=== PATIENT | female | born 1940 | race Caucasian/White ===

== ENCOUNTER 2017-03-14 04:43 | Inpatient (IN) | payer MEDICAID, OTHER ==
[~2017-03-14] VITALS: Ht 160 cm; Wt 52.5 kg
[~2017-03-14 04:43] MED LIST: CIPR500T4 PO; CLOT30CR24 TOP; IBUP400T22 PO; NITR-58 PO; OMEP20CA16 PO; PHEN-537 PO; SYN1 PO
[2017-03-14 04:47] VITALS: Ht 160 cm; Wt 52.5 kg
[2017-03-14 05:24] LABS: BASOPHIL # 0.1 10^3/ul (0.0-0.1); BASOPHILS % 0.5 % (0.0-2.0); EOSINOPHILS # 0.1 10^3/ul (0.0-0.5); EOSINOPHILS % 0.9 % (0.0-7.0); HEMATOCRIT 37.2 % (37.0-47.0); HEMOGLOBIN 12.3 g/dl (12.0-16.0); LYMPHOCYTES # 2.1 10^3/ul (0.8-2.9); MEAN CORPUSCULAR HEMOGLOBIN 33.5 pg (29.0-33.0); MEAN CORPUSCULAR HGB CONC 33.1 g/dl (32.0-37.0); MEAN CORPUSCULAR VOLUME 101.4 fl (82.0-101.0); MEAN PLATELET VOLUME 10.7 fl (7.4-10.4); MONOCYTE # 0.7 10^3/ul (0.3-0.9); MONOCYTES % 6.1 % (0.0-11.0); NEUTROPHIL # 8.6 10^3/ul (1.6-7.5); NEUTROPHILS % 74.2 % (39.0-77.0); PLATELET COUNT 190 10^3/UL (140-415); RED BLOOD COUNT 3.67 10^6/ul (4.20-5.40); RED CELL DISTRIBUTION WIDTH 14.8 % (11.5-14.5); WHITE BLOOD COUNT 11.6 10^3/ul (4.8-10.8)
[2017-03-14 05:47] LABS: ALBUMIN 3.8 g/dl (3.3-4.9); BILIRUBIN,INDIRECT 0.5 mg/dl (0-1.1); BILIRUBIN,TOTAL 0.5 mg/dl (0.2-1.3); CALCIUM 9.9 mg/dl (8.4-10.2); CREATININE 0.51 mg/dl (0.44-1.00); POTASSIUM 3.4 mmol/L (3.5-5.1); TOTAL PROTEIN 7.6 g/dl (6.1-8.1)
[2017-03-14] MEDS ORDERED: ACYC400T2 PO (05:58)
[2017-03-14] MEDS ORDERED: ACET500C3 PO (05:58)
[2017-03-14] MEDS ORDERED: DOCU100C26 PO (05:58)
--- NOTE | 2017-03-14 06:21 | RADRPT ---
PROCEDURE: Chest. CLINICAL INDICATION: Chest pain. TECHNIQUE: Single frontal view of the chest was obtained. COMPARISON: 05/08/2015. FINDINGS: The cardiac silhouette is magnified. The aortic arch is calcified. There is mild left basilar atel ectasis. There is no focal consolidation, vascular congestion or pleural effusion. There is no pneu mothorax. IMPRESSION: Mild left basilar atelectasis. Aortic atherosclerosis. .Gianni Perla MD, MD Date Time Electronically viewed and signed by .Gianni Perla MD, on 03/14/2017 06:20 .T/
--- NOTE | 2017-03-14 06:36 | RADRPT ---
PROCEDURE: CT Abdomen and pelvis without contrast. CLINICAL INDICATION: Abdominal pain TECHNIQUE: CT scan of the abdomen and pelvis without contrast was performed on a multidetector hig h-resolution CT scan. . Coronal and sagittal reformatted images were obtained from the axial [facility] e images. Standard CT scan of the abdomen pelvis without contrast protocols were performed. The total exam CTDI equals 13.26 mGy and the total exam DLP equals 705.42 mGy-cm. One or more of the following dose reduction techniques were used: - Automated exposure control. - Adjustment of the mA and/or kV according to patient size. Use of iterative reconstruction technique. COMPARISON: CT abdomen pelvis 10/29/2012 FINDINGS: There is retained feces throughout the colon consistent with constipation. There are diverticular ch anges of the sigmoid and distal descending colon but no definite CT evidence of diverticulitis. Ther e is mild wall thickening of the colon without pericolonic stranding and mild colitis should be cons idered. The appendix is unremarkable. The stomach and small bowel are unremarkable. Negative for intra-abdominal free air, free fluid, abscesses or lymphadenopathy. The kidneys are normal in size without calcified renal calculi hydronephrosis or intra renal masses bilaterally. The urinary bladder is unremarkable. Status post hysterectomy. No adnexal masses. The liver spleen pancreas adrenal glands and gallbladder are unremarkable. No evidence of biliary du ctal dilation. There is atherosclerosis of the aorta but no aneurysm. There is bilateral fat containing inguinal he rnias but no herniated bowel or strangulation. The lung bases are unremarkable. The osseous structures are unremarkable without acute osseous findings or osteoblastic/osteolytic le sions. There is dystrophic calcification involving both gluteal regions consistent with an injection granuloma. IMPRESSION: 1. Mild diffuse colonic wall thickening without pericolonic stranding and mild colitis should be co nsidered. Diverticulosis of the sigmoid and distal descending colon but no definite CT evidence of d iverticulitis. Negative for intra-abdominal free air fluid or abscesses. 2. No evidence of calcified urinary calculi or obstructive uropathy. 3. Bilateral fat containing inguinal hernias but no herniated hour strangulation. RPTAT:AAJJ B Jose Luis Physician Date Time Electronically viewed and signed by Marlee Amaya Physician on 03/14/2017 06:36 YANCI/
[2017-03-14] MEDS ORDERED: LEVOFLOXACIN 750MG/D5W (PMX) 150 ML IVPB ONE (07:00)
[2017-03-14] MEDS ORDERED: SOD CHLORIDE 0.9% IV ONE (07:00)
[2017-03-14] MEDS ORDERED: metroNIDAZOLE 500 MG/NS (PMX) 100 ML IVPB ONE (07:00)
[2017-03-14] MEDS ORDERED: ONDANSETRON 4 MG INJ ONE (07:04)
[2017-03-14] MEDS ORDERED: morphine 2 MG INJ ONE (07:05)
[2017-03-14 07:37] VITALS: TEMP 99
--- NOTE | 2017-03-14 07:57 | ERA ---
ER Documentation Chief Complaint Date/Time DATE: 03/14/17 TIME: 07:53 Chief Complaint diffuse abd pain w/ N/V x 1 day HPI 76-year-old female brought to the emergency department complaining of abdominal pain. Patient states for the last 1-2 days, she has been having increased diffuse, nonspecific, visceral, poorly localized abdominal pain. This is associated with nausea and nonbilious nonbloody emesis. She feels constipated but has had no blood in her stool. She states that the pain became more severe and she came to the emergency department for evaluation. She states she has never had this type of pain before. ROS All systems reviewed and are negative except as per history of present illness. Medications Home Meds Reported Medications Acyclovir* (Acyclovir*) 400 Mg Tablet, 400 MG PO BID, TAB 03/14/17 Acetaminophen (Mapap) 500 Mg Capsule, 500 MG PO Q4H Y for PAIN, CAP 03/14/17 Docusate Sodium* (Doc-Q-Lace*) 100 Mg Capsule, 100 MG PO BID Y for CONSTIPATION , CAP 03/14/17 Levothyroxine Sodium* (Synthroid*) 100 Mcg Tablet, 100 MCG PO AC BREAKFAST, TAB 05/08/15 Omeprazole* (Omeprazole*) 20 Mg Capsule.dr, 20 MG PO DAILY, CAP 02/16/14 Discontinued Scripts Ibuprofen* (Motrin*) 400 Mg Tab, 400 MG PO Q6, #30 TAB Prov:ADRIANA MILLER 11/04/15 Clotrimazole* (Clotrimazole* AF) 1% - 30 Gm Cream.gm., 1 APPLIC TOP BID for 7 Days, TUB Prov:ADRIANA MILLER 11/04/15 Phenazopyridine Hcl* (Pyridium*) 100 Mg Tab, 100 MG PO TID Y for URINARY PAIN, # 8 TAB Prov:ADRIANA MILLER 11/04/15 Nitrofurantoin Monohyd Macrocr* (Macrobid*) 100 Mg Capsr, 100 MG PO BID for 7 Days, CAP Prov:PAULADRIANA SIMEON C 11/04/15 Ciprofloxacin Hcl* (Ciprofloxacin Hcl*) 500 Mg Tablet, 500 MG PO BID for 5 Days , TAB Prov:CAMRYN POWER DO 05/09/15 Allergies Allergies: Coded Allergies: No Known Allergy (Unverified , 03/14/17) PMhx/Soc History of Surgery: Yes (hysterectomy) Anesthesia Reaction: No Hx Neurological Disorder: No Hx Respiratory Disorders: No Hx Cardiac Disorders: No Hx Psychiatric Problems: No Hx Miscellaneous Medical Probl: Yes (thyroid and gastritis) Hx Alcohol Use: No Hx Substance Use: No Hx Tobacco Use: No Smoking Status: Never smoker FmHx Noncontributory for chief complaint with supportive son at the bedside Physical Exam Vitals Vital Signs Date Time Temp Pulse Resp B/P Pulse Ox O2 Delivery O2 Flow Rate FiO2 03/14/17 07:37 99.0 133 30 138/48 97 Room Air 03/14/17 06:15 97.8 117 18 134/76 97 Room Air 03/14/17 05:07 97.6 122 20 134/96 97 Room Air 03/14/17 04:47 97.6 136 20 184/106 98 Physical Exam GENERAL: Patient is an elderly female who appears to be uncomfortable HEENT: Pupils equal, round, and reactive to light. EOMI. There is no scleral icterus. NECK: C-spine is soft and supple, there is no meningismus. There is no cervical lymphadenopathy. LUNGS: Clear to auscultation bilaterally. There are no rales, wheezes or rhonchi. HEART: Regular rate and rhythm, no murmurs, clicks, rubs or gallops. ABDOMEN: Soft, nondistended. Hypoactive bowel sounds. Left lower quadrant tenderness without rebound or guarding EXTREMITIES: There is no peripheral cyanosis or edema. No focal swelling or erythema. NEURO: The patient moves all four extremities with 5/5 strength. Cranial nerves II - XII are intact. Normal gait. Alert and oriented SKIN: There is no apparent rash or petechiae. HEME/LYMPHATIC: There is no evidence of excessive bruising or lymphedema. PSYCHIATRIC: The patient does not appear anxious or depressed. Result Diagram: 03/14/17 0510 03/14/17 0510 Results 24 hrs Laboratory Tests Test 03/14/17 05:10 White Blood Count 11.610^3/ul Red Blood Count 3.6710^6/ul Hemoglobin 12.3g/dl Hematocrit 37.2% Mean Corpuscular Volume 101.4fl Mean Corpuscular Hemoglobin 33.5pg Mean Corpuscular Hemoglobin Concent 33.1g/dl Red Cell Distribution Width 14.8% Platelet Count 74998^3/UL Mean Platelet Volume 10.7fl Neutrophils % 74.2% Lymphocytes % 18.0% Monocytes % 6.1% Eosinophils % 0.9% Basophils % 0.5% Nucleated Red Blood Cells % 0.0/100WBC Neutrophils # 8.610^3/ul Lymphocytes # 2.110^3/ul Monocytes # 0.710^3/ul Eosinophils # 0.110^3/ul Basophils # 0.110^3/ul Nucleated Red Blood Cells # 0.010^3/ul Sodium Level 138mmol/L Potassium Level 3.4mmol/L Chloride Level 103mmol/L Carbon Dioxide Level 26mmol/L Anion Gap 12 Blood Urea Nitrogen 11mg/dl Creatinine 0.51mg/dl Glucose Level 151mg/dl Calcium Level 9.9mg/dl Total Bilirubin 0.5mg/dl Direct Bilirubin 0.00mg/dl Indirect Bilirubin 0.5mg/dl Aspartate Amino Transf (AST/SGOT) 51IU/L Alanine Aminotransferase (ALT/SGPT) 34IU/L Alkaline Phosphatase 204IU/L Total Protein 7.6g/dl Albumin 3.8g/dl Globulin 3.80g/dl Albumin/Globulin Ratio 1.00 Lipase 121U/L Current Medications Medications (Trade) Dose Ordered Sig/Jenny Route PRN Reason Start Time Stop Time Status Last Admin Dose Admin Levofloxacin/ Dextrose 150 ml @ 100 mls/hr ONCE ONCE IVPB 03/14/17 07:00 03/14/17 08:29 Metronidazole 100 ml @ 100 mls/hr ONCE ONCE IVPB 03/14/17 07:00 03/14/17 07:59 03/14/17 07:25 Sodium Chloride (NS) 1,630 ml @ 543.333 mls/hr BOLUS X1 ONCE IV 03/14/17 07:00 03/14/17 09:59 03/14/17 07:25 Ondansetron HCl (Zofran Inj) 4 mg STK-MED ONCE .ROUTE 03/14/17 07:04 03/14/17 07:05 DC Morphine Sulfate (morphine) 2 mg STK-MED ONCE .ROUTE 03/14/17 07:05 03/14/17 07:06 DC Procedures/MDM Patient was taken to a room, seen and evaluated. Comfort measures were initiated. Diagnostic tests were ordered and reviewed. 3 LEAD RHYTHM STRIP: [Normal sinus rhythm without ectopy] RADIOLOGY: [reviewed with the radiologist] CONSULTATION: [hospitalist] was notified for admission REEVALUATION: Patient continued to have abdominal discomfort and required ongoing pain medication MEDICAL DECISION MAKING: Patient presents with abdominal pain of uncertain etiology. Differential diagnosis considered includes appendicitis, diverticulitis, cholecystitis and other intra-abdominal medical and surgical concerns. I have reviewed the patient's lab studies and imaging as well as multiple examinations of the abdomen. At this time, patient's evaluation demonstrates evidence of colitis and I suspect diverticulitis. Given her tachycardia her ongoing discomfort and her age, she is at high risk. He does not appear to be appropriate for outpatient care and I will be admitting her for ongoing pain control, IV antibiotics, monitoring. Departure Diagnosis: Primary Impression: Diverticulitis Condition: AMBER Peace Mar 14, 2017 07:57
[2017-03-14] MEDS ORDERED: ONDANSETRON 4 MG INJ IV STA (08:01)
[2017-03-14 08:09] LABS: ADD UMIC YES; UR ASCORBIC ACID 40 mg/dL (NEGATIVE); UR BACTERIA FEW /HPF (NONE SEEN); UR BILIRUBIN (Dip) NEGATIVE (NEGATIVE); UR BLOOD (Dip) NEGATIVE (NEGATIVE); UR CLARITY CLOUDY (CLEAR); UR COLOR AMBER (YELLOW); UR GLUCOSE (Dip) NEGATIVE (NEGATIVE); UR KETONES (Dip) TRACE mg/dL (NEGATIVE); UR LEUKOCYTE ESTERASE (Dip) 3+ Leu/ul (NEGATIVE); UR MUCUS MANY /HPF (NONE SEEN); UR NITRITE (Dip) POSITIVE (NEGATIVE); UR NONSQUAMOUS EPITHELIAL CELL 2 /HPF (NONE SEEN); UR RBC 15 /HPF (0-5); UR SPECIFIC GRAVITY (Dip) 1.014 (1.003-1.030); UR SQUAMOUS EPITHELIAL CELL FEW /HPF (FEW); UR TOTAL PROTEIN (Dip) NEGATIVE (NEGATIVE); UR UROBILINOGEN (Dip) 2+ mg/dL (NEGATIVE)
[2017-03-14] MEDS ORDERED: morphine 2 MG INJ IV ONE (08:30)
[2017-03-14] MEDS ORDERED: NA PHOSPHATE/BIPHOS 133 ML ENEMA PR ONE (08:41)
[2017-03-14] MEDS ORDERED: NACL 0.9% 3 ML SYG IV SCH (09:00)
[2017-03-14] MEDS ORDERED: POTASSIUM CHLORIDE (SR) 20 MEQ TAB PO STA (09:02)
[2017-03-14] MEDS ORDERED: CEFTRIAXONE 1 GM/50 ML (PMX) 50 ML IVPB SCH (09:30)
[2017-03-14] MEDS ORDERED: MAGNESIUM CITRATE 300 ML BTL PO ONE (09:30)
--- NOTE | 2017-03-14 10:02 | HP ---
Date/Time of Note Date/Time of Note DATE: 03/14/17 TIME: 09:58 Assessment/Plan VTE Prophylaxis VTE Prophylaxis Intervention: SCD's Assessment/Plan Chief Complaint/Hosp Course 1. Abdominal pain. CT scan of the abdomen and pelvis showing mild diffuse colonic wall thickening without pericolonic stranding. However, the CT showed retained feces throughout the colon consistent with constipation. Patient will be started on a bowel regimen. Patient will be started on prokinetics. The reason for the patient's constipation is unclear. The patient does not use any chronic opioids. The patient has no history of any diabetes. The patient has hypothyroidism. A thyroid panel will be obtained to evaluate for any significant hypothyroidism that might be causing the patient's constipation. A gastroenterology consult will be obtained to evaluate for other causes. 2. Sinus tachycardia. Etiology unclear. The patient has no evidence of any dehydration. The patient has no evidence of any underlying sepsis. The patient was noticed to have hypokalemia. This will be repleted. Patient's cardiac rhythm will be monitored closely. 3. Hypothyroidism. The patient's Synthroid will be resumed. However, a single dose of IV Synthroid will be given because the patient probably has poor absorption in the gastrointestinal tract. 4. Positive urinalysis. Possible urinary tract infection. The patient will be started on appropriate antibiotics. Urine cultures will be obtained. Plan: The patient will be admitted to inpatient setting. The patient will be started on a clear liquid diet. The patient will be started on DVT prophylaxis. The patient will remain a full code. Activities will be as tolerated. Although the patient had minimal leukocytosis, sinus tachycardia, and tachypnea , the patient does not meet the criteria for any SIRS. Therefore, the patient will not be given any fluid resuscitation for any suspected sepsis. The rest of the patient's management will be based on the clinical course, inputs from consultants, and the results of diagnostic studies. Based on the patient's clinical presentation, she most probably requires at least 2 midnights' stay for further management and evaluation of her clinical presentation. The case and management of this patient was fully discussed with Dr. Lopez. Problems: HPI/ROS Admit Date/Time Admit Date/Time Hx of Present Illness Reason for admission: Abdominal pain, constipation. Consultants 1. Tomy Bunch MD. Gastroenterology. 76-year-old female with past medical history of hypothyroidism and GERD who came to the ER with chief complaint of diffuse abdominal pain and chronic constipation that has been worse for the past 2 days. Patient verbalized that she was having abdominal pain for the past 3 years since she had her hysterectomy done. She also verbalized that she has been having constipation for the past 1 year or so. She was taking as needed Colace for her constipation. The patient verbalized that her last BM was 2 days ago. Patient denied any fevers or chills. The patient verbalized that she was having poor appetite and had abdominal discomfort with food intake. In the emergency room, the patient underwent a CT scan of the abdomen and pelvis that showed "mild diffuse colonic wall thickening without pericolonic stranding and mild colitis should be considered." The CT also revealed diverticulosis of the sigmoid and distal descending colon but no definite CT evidence of diverticulitis. There was no evidence of any calcified urinary calculi or obstructive uropathy. The patient had minimal leukocytosis. The patient was afebrile. The patient was noticed to be tachycardic. The patient was treated with IV Flagyl and IV Levaquin in the emergency room. ROS Constitutional: poor po Eyes: no complaints ENT: no complaints Respiratory: no complaints Cardiovascular: no complaints Gastrointestinal: constipation Genitourinary: no complaints Musculoskeletal: no complaints Skin: no complaints Neurologic: no complaints Endocrine: no complaints Lymphatic: no complaints Psychological: no complaints Immunologic: no complaints PMH/Family/Social Past Medical History Medical History: hypothyroid Past Surgical History Past Surgical Hx: other (Hysterectomy) Social History Alcohol Use: none Smoking Status: Never smoker Drug Use: none Exam/Review of Systems Vital Signs Vitals Vital Signs Date Time Temp Pulse Resp B/P Pulse Ox O2 Delivery O2 Flow Rate FiO2 03/14/17 07:37 99.0 133 30 138/48 97 Room Air Exam Exam General: Adequately build 76 year-old female lying in bed in no apparent distress. HEENT: Normocephalic, atraumatic. Eyes: Anicteric sclerae, conjunctivae clear. ENT: Nasal septum midline, oral mucosa moist. Neck supple, JVD noticed. Respiratory: Bilaterally diminished breath sounds. Tachypneic. No adventitious breath sounds. Cardiovascular: S1, S2 heard. No murmurs or gallops. Abdomen: Soft and nondistended. Diffuse abdominal tenderness specifically in the suprapubic area. Genitourinary: Examination revealed external and internal hemorrhoids. No solid stool in the rectal vault. Vulva has no evidence of any herpes. Extremities: No cyanosis, no clubbing, no edema. Peripheral pulses palpable. Neurologic: Cranial nerves II through XII grossly intact. The patient is awake, alert, and oriented. Skin: Normal skin turgor. No skin rashes. Labs Result Diagram: 03/14/17 0510 03/14/17 0510 Medications Medications Current Medications Acetaminophen (Tylenol Tab) 650 mg Q6H PRN PO PAIN LEVEL 1-3 OR FEVER; Start at 09:00 Polyethylene Glycol 17 gm 17 gm BID PO ; Start 03/14/17 at 09:30 Ceftriaxone Sodium (Rocephin) 50 ml @ 100 mls/hr Q24H IVPB ; Start 03/14/17 at 09:[address] scan of the Abdomen & Pelvis IMPRESSION: 1. Mild diffuse colonic wall thickening without pericolonic stranding and mild colitis should be considered. Diverticulosis of the sigmoid and distal descending colon but no definite CT evidence of diverticulitis. Negative for intra-abdominal free air fluid or abscesses. 2. No evidence of calcified urinary calculi or obstructive uropathy. 3. Bilateral fat containing inguinal hernias but no herniated hour strangulation. CXR IMPRESSION: Mild left basilar atelectasis. Aortic atherosclerosis. CARLOS MONTES NP Mar 14, 2017 10:02
[2017-03-14 10:06] LABS: THYROID STIMULATING HORMONE 6.19 MIU/L (0.465-4.680)
[2017-03-14] MEDS ORDERED: ONDANSETRON 4 MG INJ IV PRN (10:30)
[2017-03-14] MEDS: POLYETHYLENE GLYCOL 17 GM PACKET PO SCH ×2 (10:59→20:55)
[2017-03-14] MEDS ORDERED: LEVOTHYROXINE 100 MCG VIAL IV ONE (11:00)
[2017-03-14] MEDS: LEVOTHYROXINE 100 MCG TAB PO SCH (11:00)
[2017-03-14] MEDS ORDERED: IBUPROFEN 600 MG TAB ONE (11:14)
[2017-03-14] MEDS ORDERED: IBUPROFEN 600 MG TAB PO ONE (11:30)
[2017-03-14 12:57] VITALS: BP 133/51; PULSE 112; RESP 12
--- NOTE | 2017-03-14 14:39 | CONS ---
Date/Time of Note Date/Time of Note DATE: 03/14/17 TIME: 14:28 Assessment/Plan Assessment/Plan Additional Assessment/Plan Assessment * Abdominal pain/constipation T/C Diverticulitis * hypothyroidism Plan * may have clear liquids * Start with Metronidazole 500 mg Q8 * continue present management * case discussed with DR Bunch * Further orders will depend on clinical course Consultation Date/Type/Reason Admit Date/Time Reason for Consultation 76 year old female with past medical history of diverticulosis,hemorrhoids,GERD ,sigmoid polyp ,uterine prolapse wit h hysterectomy presented in the emergency room diffuse abdominal pain x 2 days with associated nausea and vomiting and constipation.Patient denies any fever ,hematochezia nor chest pain.Emergency room workup revealed leukocytosis 11.[address] scan abdomen showed . Mild diffuse colonic wall thickening without pericolonic stranding and mild colitis should be considered. Diverticulosis of the sigmoid and distal descending colon but no definite CT evidence of diverticulitis. Negative for intra-abdominal free air fluid or abscesses.. No evidence of calcified urinary calculi or obstructive uropathy. . Bilateral fat containing inguinal hernias but no herniated hour strangulation. Presently ,patient denies any nausea nor vomiting but still complaining of abdominal pain Eyes: no complaints ENT: no complaints Respiratory: no complaints Cardiovascular: no complaints Gastrointestinal: constipation Genitourinary: no complaints Musculoskeletal: no complaints Skin: no complaints Neurologic: no complaints Lymphatic: no complaints Psychological: no complaints Immunologic: no complaints Past Medical History Medical History: diverticulitis, GERD, hypothyroid Past Surgical History Past Surgical Hx: endoscopy, other (Hysterectomy) Family History Significant Family History: no pertinent family hx Social History Alcohol Use: none Smoking Status: Former smoker Drug Use: none Exam/Review of Systems Vital Signs Vitals Vital Signs Date Time Temp Pulse Resp B/P Pulse Ox O2 Delivery O2 Flow Rate FiO2 03/14/17 12:57 98.2 112 12 133/51 100 Room Air Exam Constitutional: alert, oriented, well developed Psych: nl mood/affect, no complaints Head: atraumatic, normocephalic Eyes: EOMI, PERRL, nl conjunctiva, nl lids, nl sclera ENMT: nl external ears & nose, nl lips & teeth, nl nasal mucosa & septum Neck: non-tender, supple Respiratory: clear to auscultation, normal air movement Cardiovascular: nl pulses, regular rate and rhythm Gastrointestinal: nl liver, spleen, non-tender, soft Musculoskeletal: nl extremities to inspection, nl gait and stance Extremities: normal pulses Neurological: nl speech, nl strength Skin: nl turgor, No rash or lesions Lymph: nl lymph nodes Results Result Diagram: 03/14/17 0510 03/14/17 0510 Results 24 hrs Laboratory Tests Test 03/14/17 05:10 03/14/17 07:50 White Blood Count 11.6 #H Red Blood Count 3.67 L Hemoglobin 12.3 Hematocrit 37.2 Mean Corpuscular Volume 101.4 H Mean Corpuscular Hemoglobin 33.5 H Mean Corpuscular Hemoglobin Concent 33.1 Red Cell Distribution Width 14.8 H Platelet Count 190 Mean Platelet Volume 10.7 #H Neutrophils % 74.2 Lymphocytes % 18.0 Monocytes % 6.1 Eosinophils % 0.9 Basophils % 0.5 Nucleated Red Blood Cells % 0.0 Neutrophils # 8.6 H Lymphocytes # 2.1 Monocytes # 0.7 Eosinophils # 0.1 Basophils # 0.1 Nucleated Red Blood Cells # 0.0 Sodium Level 138 Potassium Level 3.4 L Chloride Level 103 Carbon Dioxide Level 26 Anion Gap 12 Blood Urea Nitrogen 11 Creatinine 0.51 Glucose Level 151 Hemoglobin A1c 5.5 Calcium Level 9.9 Total Bilirubin 0.5 Direct Bilirubin 0.00 Indirect Bilirubin 0.5 Aspartate Amino Transf (AST/SGOT) 51 H Alanine Aminotransferase (ALT/SGPT) 34 Alkaline Phosphatase 204 H B-Type Natriuretic Peptide 68 Total Protein 7.6 Albumin 3.8 Globulin 3.80 H Albumin/Globulin Ratio 1.00 Lipase 121 Thyroid Stimulating Hormone (TSH) 6.190 H Free Thyroxine 1.37 Urine Color MELE Urine Clarity CLOUDY A Urine pH 6.0 Urine Specific [place] 1.014 Urine Ketones TRACE A Urine Nitrite POSITIVE A Urine Bilirubin NEGATIVE Urine Urobilinogen 2+ H Urine Leukocyte Esterase 3+ H Urine Microscopic RBC 15 H Urine Microscopic WBC 57 H Urine Squamous Epithelial Cells FEW Urine Bacteria FEW A Urine Mucus MANY A Urine Hemoglobin NEGATIVE Urine Glucose NEGATIVE Urine Total Protein NEGATIVE Medications Medications Current Medications Acetaminophen (Tylenol Tab) 650 mg Q6H PRN PO PAIN LEVEL 1-3 OR FEVER; Start at 09:00 Polyethylene Glycol 17 gm 17 gm BID PO Last administered on 03/14/17t 10:59; Admin Dose 17 GM; Start 03/14/17 at 09:30 Ceftriaxone Sodium (Rocephin) 50 ml @ 100 mls/hr Q24H IVPB Last administered on 03/14/17t 10:50; Admin Dose 100 MLS/HR; Start 03/14/17 at 09:30 Ondansetron HCl (Zofran Inj) 4 mg Q6H PRN IV NAUSEA AND/OR VOMITING; Start at 10:30 Metoclopramide HCl (Reglan) 5 mg Q6 IV ; Start 03/14/17 at 14:00 BUTCH FREY NP Mar 14, 2017 14:39
[2017-03-14] MEDS: METOCLOPRAMIDE 10 MG INJ IV SCH ×2 (15:57→17:46)
[2017-03-14 18:24] VITALS: BP 116/55; PULSE 134; RESP 16
[2017-03-14 18:48] VITALS: PULSE 120
[2017-03-14 20:13] VITALS: BP 90/48; RESP 18
[2017-03-14] MEDS ORDERED: KETOROLAC 30 MG INJ IV STA (20:18)
[2017-03-14] MEDS: SOD CHLORIDE 0.9% 1,000 ML IV SCH (20:53)
[2017-03-14 23:30] VITALS: BP 88/47; RESP 18
[2017-03-15] VITALS (23 sets, daily range): BP systolic 67–115; BP diastolic 43–76; PULSE 83–107; RESP 16–29
[2017-03-15] MEDS: SOD CHLORIDE 0.9% 1,000 ML IV SCH (00:19)
[2017-03-15] MEDS: METOCLOPRAMIDE 10 MG INJ IV SCH ×2 (00:58→05:23)
[2017-03-15] MEDS ORDERED: SOD CHLORIDE 0.9% 1,000 ML IV SCH (05:30)
[2017-03-15 06:01] LABS: ABNORMAL IP MESSAGE 1; BASOPHIL # 0.1 10^3/ul (0.0-0.1); BASOPHILS % 0.3 % (0.0-2.0); EOSINOPHILS # 0.1 10^3/ul (0.0-0.5); EOSINOPHILS % 0.3 % (0.0-7.0); HEMATOCRIT 30.8 % (37.0-47.0); HEMOGLOBIN 10.3 g/dl (12.0-16.0); LYMPHOCYTES # 1.7 10^3/ul (0.8-2.9); LYMPHOCYTES % 9.2 % (15.0-51.0); MEAN CORPUSCULAR HEMOGLOBIN 33.1 pg (29.0-33.0); MEAN CORPUSCULAR HGB CONC 33.4 g/dl (32.0-37.0); MEAN PLATELET VOLUME 11.2 fl (7.4-10.4); MONOCYTE # 2.5 10^3/ul (0.3-0.9); MONOCYTES % 13.4 % (0.0-11.0); NEUTROPHIL # 14.1 10^3/ul (1.6-7.5); NEUTROPHILS % 75.1 % (39.0-77.0); PLATELET COUNT 162 10^3/UL (140-415); RED BLOOD COUNT 3.11 10^6/ul (4.20-5.40); RED CELL DISTRIBUTION WIDTH 15.4 % (11.5-14.5); WHITE BLOOD COUNT 18.7 10^3/ul (4.8-10.8)
[2017-03-15 06:23] LABS: POSITIVE DIFF @See below
[2017-03-15] MEDS ORDERED: SOD CHLORIDE 0.9% 1,000 ML IV ONE (06:30)
[2017-03-15 06:47] LABS: ALBUMIN 2.3 g/dl (3.3-4.9); ALBUMIN/GLOBULIN RATIO 0.82; BILIRUBIN,INDIRECT 0.5 mg/dl (0-1.1); BILIRUBIN,TOTAL 0.5 mg/dl (0.2-1.3); CALCIUM 8.3 mg/dl (8.4-10.2); CREATININE 0.73 mg/dl (0.44-1.00); POTASSIUM 4.9 mmol/L (3.5-5.1); TOTAL PROTEIN 5.1 g/dl (6.1-8.1)
[2017-03-15] MEDS ORDERED: LIDOCAINE 1% (MPF) 5 ML VIAL SC ONE (09:00)
[2017-03-15] MEDS ORDERED: NORepinephrine 8MG/250 ML (PMX 250 ML IV SCH (09:00)
[2017-03-15] MEDS: LEVOTHYROXINE 100 MCG TAB PO SCH (09:17)
--- NOTE | 2017-03-15 09:34 | PN ---
Date/Time of Note Date/Time of Note DATE: 03/15/17 TIME: 09:28 Assessment/Plan VTE Prophylaxis VTE Prophylaxis Intervention: SCD's Lines/Catheters IV [facility] (from [facility]): Saline Lock Assessment/Plan Chief Complaint/Hosp Course 1. Abdominal pain. [address] scan of the abdomen and pelvis showing mild diffuse colonic wall thickening without pericolonic stranding. However, the CT showed retained feces throughout the colon consistent with constipation. The patient' s constipation has been resolved. Status post evaluation by gastroenterology who recommended antibiotic therapy 2. Severe sepsis. Possible early shock. Elevated white count, sinus tachycardia, and SBP less than 90 with suspected urinary tract infection and/or colitis. Pancultures will be ordered. A 2D echocardiogram will be obtained. Patient will be started on pressors if the patient's blood pressure remains low. 3. Hypothyroidism. Continue Synthroid. 4. Fluids, electrolytes, and nutrition. Clear liquids. IVFs. 5. DVT prophylaxis. Bilateral sequential compression devices. 6. Plan. Continue fluid boluses. After the fluid boluses is done and if the patient remains hypotensive, may need to start the patient on pressors. Obtain pancultures. Broaden antibiotics. Obtain 2D echocardiogram. Obtain bulb inspector evaluation. Case discussed with Dr. Lopez. Problems: Subjective 24 Hr Interval Summary Free Text/Dictation The patient had multiple episodes of diarrhea last night. The patient was hypotensive. The patient received multiple boluses of IV fluid last night. The patient was moved to the intensive care unit on 03/15/2017 for possible vasopressor infusion because of persistent hypotension. Exam/Review of Systems Vital Signs Vitals Vital Signs Date Time Temp Pulse Resp B/P Pulse Ox O2 Delivery O2 Flow Rate FiO2 03/15/17 07:31 98.4 91 16 79/43 98 03/14/17 18:24 Room Air Intake and Output 03/14/17 03/14/17 03/15/17 15:00 23:00 07:00 Intake Total 200 ml 2840 ml Balance 200 ml 2840 ml Exam General: Adequately build 76 year-old female lying in bed in no apparent distress. HEENT: Normocephalic, atraumatic. Eyes: Anicteric sclerae, conjunctivae clear. ENT: Nasal septum midline, oral mucosa moist. Neck supple, JVD noticed. Respiratory: Bilaterally diminished breath sounds. No adventitious breath sounds. Cardiovascular: S1, S2 heard. No murmurs or gallops. Abdomen: Soft and nondistended. Diffuse abdominal tenderness specifically in the suprapubic area. Genitourinary: Deferred. Extremities: No cyanosis, no clubbing, no edema. Peripheral pulses palpable. Neurologic: Cranial nerves II through XII grossly intact. The patient is awake, alert, and oriented. Skin: Normal skin turgor. No skin rashes. Results Result Diagram: 03/15/17 0525 03/15/17 0525 Results 24 hrs Laboratory Tests Test 03/15/17 05:25 White Blood Count 18.7 #H Red Blood Count 3.11 L Hemoglobin 10.3 L Hematocrit 30.8 L Mean Corpuscular Volume 99.0 Mean Corpuscular Hemoglobin 33.1 H Mean Corpuscular Hemoglobin Concent 33.4 Red Cell Distribution Width 15.4 H Platelet Count 162 Mean Platelet Volume 11.2 H Neutrophils % 75.1 Lymphocytes % 9.2 L Monocytes % 13.4 H Eosinophils % 0.3 Basophils % 0.3 Nucleated Red Blood Cells % 0.0 Neutrophils # 14.1 H Lymphocytes # 1.7 Monocytes # 2.5 H Eosinophils # 0.1 Basophils # 0.1 Nucleated Red Blood Cells # 0.0 Sodium Level 136 Potassium Level 4.9 Chloride Level 112 H Carbon Dioxide Level 22 Anion Gap 7 L Blood Urea Nitrogen 20 Creatinine 0.73 Glucose Level 87 # Calcium Level 8.3 L Magnesium Level 2.6 H Total Bilirubin 0.5 Direct Bilirubin 0.00 Indirect Bilirubin 0.5 Aspartate Amino Transf (AST/SGOT) 36 Alanine Aminotransferase (ALT/SGPT) 34 Alkaline Phosphatase 97 # Total Protein 5.1 #L Albumin 2.3 #L Globulin 2.80 Albumin/Globulin Ratio 0.82 Medications Medications Current Medications Acetaminophen 650 mg 650 mg Q6H PRN PO PAIN LEVEL 1-3 OR FEVER; Start 03/14/17 at 09:00 Ceftriaxone Sodium (Rocephin) 50 ml @ 100 mls/hr Q24H IVPB Last administered on 03/14/17t 10:50; Admin Dose 100 MLS/HR; Start 03/14/17 at 09:30 Ondansetron HCl 4 mg 4 mg Q6H PRN IV NAUSEA AND/OR VOMITING; Start 03/14/17 at 10:30 Norepinephrine 250 ml @ 1.875 mls/ hr TITRATE IV ; Start 03/15/17 at 09:00 Metronidazole (Flagyl 500 Mg (Pmx)) 100 ml @ 100 mls/hr Q8 IVPB ; Start at 14:00 CARLOS MONTES NP Mar 15, 2017 09:34 17 at 14:00 CARLOS MONTES NP Mar 15, 2017 09:34
[2017-03-15 10:25] LABS: INR 1.72; PROTIME 20.3 Sec (12.2-14.2); PT RATIO 1.6
[2017-03-15 10:26] LABS: PARTIAL THROMBOPLASTIN TIME 46.7 Sec (25.0-35.0)
[2017-03-15] MEDS ORDERED: VANCOMYCIN IV PER PHARMACY XX SCH (10:30)
[2017-03-15] MEDS: PIPER-TAZO 3.375 GM IV (PMX) 100 ML IVPB SCH ×3 (11:30→20:58)
--- NOTE | 2017-03-15 13:06 | CONS ---
DATE OF ADMISSION: 03/14/2017 DATE OF CONSULTATION: 03/15/2017 REASON FOR CONSULTATION: Hypotension and sepsis. Thank you, Dr. Guthrie, for this consultation. HISTORY OF PRESENT ILLNESS: This is a 76-year-old lady who presented with abdominal pain and constipation, which had been worse for the past several days. No nausea. No vomiting. In the emergency room, CT of the abdomen showed mild colonic wall thickening and stranding consistent with mild colitis. The patient had hypotension requiring transfer to intensive care unit and initiation of vasopressor support. In addition, urinalysis shows gram-negative rods. Initial Clostridium difficile was negative. PAST MEDICAL HISTORY: 1. Hypothyroidism. 2. Chronic constipation. MEDICATION: Per chart. ALLERGIES: NONE. SOCIAL HISTORY: Nonsmoker. No alcohol. No history of drug use. FAMILY HISTORY: Noncontributory. REVIEW OF SYSTEMS: A 12-point review of systems negative other than that mentioned above. PHYSICAL EXAMINATION: GENERAL: On examination, elderly lady, appears comfortable at rest. No acute distress. VITAL SIGNS: Temperature 98, pulse is 100, blood pressure 100/55, O2 sat 96 percent on room air. NECK: Supple. No JVD. HEART: S1, S2. No added sounds or murmurs. CHEST: Diminished air entry bilaterally. No rales or wheezes. ABDOMEN: Mildly distended. No guarding or rebound. EXTREMITIES: No cyanosis, clubbing, or edema. NEUROLOGIC: Grossly intact. DIAGNOSTIC AND LABORATORY DATA: White count 18.7, hemoglobin at 10.3, platelets of 162. BUN 20, creatinine 0.73, lactic acid 2.2. INR 1.72. Chest x-ray shows no infiltrates or effusions. Mild bibasilar atelectasis. IMPRESSION AND PLAN: 1. Likely gram-negative septic shock. 2. Chronic constipation. 3. History of hypothyroidism, which may be the cause of her chronic constipation. PLAN: 1. Continue volume resuscitation. 2. Serial lactic acid. 3. Continue vancomycin, can likely be de-escalated soon. 4. DVT and GI prophylaxis. Dictated By: Mayo Hall MD /brien/marie /Document#: [id number]
[2017-03-15] MEDS ORDERED: VANCOMYCIN 1.25 GM in SOD CHLORIDE 0.9% 250 ML IVPB SCH (13:30)
[2017-03-15] MEDS ORDERED: metroNIDAZOLE 500 MG/NS (PMX) 100 ML IVPB SCH (14:00)
--- NOTE | 2017-03-15 20:43 | RADRPT ---
Echocardiogram Report Patient Name: CORINE KU Gender: Female Date: 1940 Study Date: 15-Mar-2017 Front End Developer Designer: Jacob Mccoy RDCS Location: 114 Ref. Physician: CARLOS MONTES Quality: Good Procedures: Transthoracic echocardiogram with complete 2D, M-Mode, and doppler examination. Indications: Evaluate Left Ventricular function. 2D/M Mode Doppler Measurement Value Normal Ranges Measurement Value Normal Ranges LVIDd 2D 4.1 3.5 - 5.6 cm AV Peak Clive 1.5 m/sec LVIDs 2D 2.8 2.1 - 4.1 cm AV Peak PG 8.5 mmHg LVPWd 2D 0.9 0.6 - 1.1 cm LVOT Peak Clive 1.1 m/sec IVSd 2D 0.9 0.6 - 1.1 cm LVOT Peak PG 5.2 mmHg AoR Diam 2D 2.7 2.0 - 3.7 cm MV E Peak Clive 0.9 m/sec EDV 2D 74.4 cm3 MV A Peak Clive 1.1 m/sec ESV 2D 22.0 cm3 MV E/A 0.8 LA Dimen 2D 3.5 2.3 - 4.0 cm MV Decel Time 111 msec MV Decel Pima 8 MV E/A 0.8 TR Peak Clive 2.7 m/sec TR Peak PG 30.1 mmHg RVSP 33.0 mmHg Findings Left Ventricle: Normal left ventricular systolic function. Normal left ventricular cavity size. Normal left ventricular wall thickness. Ejection fraction is visually estimated at 60 %. Tissue Doppler/Mitral Doppler indices are consistent with impaired relaxation (Stage I diastolic dysfunction). Right Ventricle: Normal right ventricular size. Normal right ventricular systolic function. Left Atrium: The left atrium is normal in size. Right Atrium: The right atrium is normal in size. Mitral Valve: Normal appearance and function of the mitral valve with trace physiologic regurgitation. Aortic Valve: Normal appearance of the aortic valve. No significant aortic stenosis or insufficiency. Tricuspid Valve: Normal appearance of the tricuspid valve. Estimated peak PA systolic pressure 33 mmHg. There is mild tricuspid regurgitation. Pulmonic Valve: Normal pulmonic valve appearance. Pericardium: Normal pericardium with no significant pericardial effusion. Aorta: Normal aortic root. IVC: Normal size and normal respiratory collapse consistent with normal right atrial pressure. Conclusions 1.Normal left ventricular systolic function. Normal left ventricular cavity size. Normal left ventricular wall thickness. Ejection fraction is visually estimated at 60 %. Tissue Doppler/Mitral Doppler indices are consistent with impaired relaxation (Stage I diastolic dysfunction). 2.Normal appearance and function of the mitral valve with trace physiologic regurgitation. 3.Normal appearance of the tricuspid valve. Estimated peak PA systolic pressure 33 mmHg. There is mild tricuspid regurgitation. Electronically Signed By: Margarito Etienne 15-Mar-2017 20:42:56 -0700 Patient Name: CORINE KU Study Date: [id number]
[2017-03-16 02:00] VITALS: BP 101/54; RESP 16
[2017-03-16] MEDS: PIPER-TAZO 3.375 GM IV (PMX) 100 ML IVPB SCH ×3 (05:30→21:23)
[2017-03-16 06:10] LABS: BASOPHIL # 0.1 10^3/ul (0.0-0.1); BASOPHILS % 0.4 % (0.0-2.0); EOSINOPHILS # 0.4 10^3/ul (0.0-0.5); EOSINOPHILS % 2.2 % (0.0-7.0); HEMATOCRIT 29.9 % (37.0-47.0); HEMOGLOBIN 10.2 g/dl (12.0-16.0); LYMPHOCYTES # 2.7 10^3/ul (0.8-2.9); LYMPHOCYTES % 16.2 % (15.0-51.0); MEAN CORPUSCULAR HEMOGLOBIN 33.8 pg (29.0-33.0); MEAN CORPUSCULAR HGB CONC 34.1 g/dl (32.0-37.0); MEAN PLATELET VOLUME 11.5 fl (7.4-10.4); MONOCYTE # 1.3 10^3/ul (0.3-0.9); MONOCYTES % 7.5 % (0.0-11.0); NEUTROPHILS % 72.5 % (39.0-77.0); PLATELET COUNT 142 10^3/UL (140-415); RED BLOOD COUNT 3.02 10^6/ul (4.20-5.40); RED CELL DISTRIBUTION WIDTH 15.9 % (11.5-14.5); WHITE BLOOD COUNT 16.6 10^3/ul (4.8-10.8)
[2017-03-16 06:26] LABS: POSITIVE DIFF @See below
[2017-03-16 07:08] LABS: ALBUMIN 2.1 g/dl (3.3-4.9); ALBUMIN/GLOBULIN RATIO 0.77; CALCIUM 7.7 mg/dl (8.4-10.2); CREATININE 0.58 mg/dl (0.44-1.00); POTASSIUM 3.8 mmol/L (3.5-5.1); TOTAL PROTEIN 4.8 g/dl (6.1-8.1)
[2017-03-16 07:46] VITALS: BP 106/53; RESP 20
[2017-03-16] MEDS: LEVOTHYROXINE 100 MCG TAB PO SCH (07:55)
[2017-03-16 08:28] LABS: BILIRUBIN,INDIRECT 0.6 mg/dl (0-1.1); BILIRUBIN,TOTAL 0.6 mg/dl (0.2-1.3)
[2017-03-16 09:47] LABS: MAGNESIUM 2.2 mg/dl (1.7-2.5); PHOSPHORUS 2.2 mg/dl (2.5-4.9)
--- NOTE | 2017-03-16 10:51 | PN ---
Date/Time of Note Date/Time of Note DATE: 03/16/17 TIME: 10:49 Assessment/Plan VTE Prophylaxis VTE Prophylaxis Intervention: SCD's Lines/Catheters IV [facility] Type (from [facility]): Saline Lock Assessment/Plan Chief Complaint/Hosp Course 1. Abdominal pain. CT scan of the abdomen and pelvis showing mild diffuse colonic wall thickening without pericolonic stranding. However, the CT showed retained feces throughout the colon consistent with constipation. The patient' s constipation has been resolved. Status post evaluation by gastroenterology who recommended antibiotic therapy 2. Severe sepsis secondary to underlying urinary tract infection. Continue antimicrobials. Will call infectious disease for antibiotic management. 3. E. coli ESBL urinary tract infection. Continue contact precautions. Antibiotic management as per infectious diseases. 4. Hypothyroidism. Continue Synthroid. 5. Fluids, electrolytes, and nutrition. Clear liquids. IVFs. 6. DVT prophylaxis. Bilateral sequential compression devices. 7. Plan. De-escalate antibiotics. Antibiotic management as per sensitivities to be decided by infectious diseases. Advance diet. Problems: Subjective 24 Hr Interval Summary Free Text/Dictation The patient has no more hypotension. Remains afebrile. Exam/Review of Systems Vital Signs Vitals Vital Signs Date Time Temp Pulse Resp B/P Pulse Ox O2 Delivery O2 Flow Rate FiO2 03/16/17 07:46 98.7 86 20 106/53 95 03/15/17 20:00 Nasal Cannula 2.0 Intake and Output 03/15/17 03/15/17 03/16/17 15:00 23:00 07:00 Intake Total 3150 ml 1050 ml 320 ml Output Total 600 ml 100 ml Balance 3150 ml 450 ml 220 ml Exam General: Adequately build 76 year-old female lying in bed in no apparent distress. HEENT: Normocephalic, atraumatic. Eyes: Anicteric sclerae, conjunctivae clear. ENT: Nasal septum midline, oral mucosa moist. Neck supple, JVD noticed. Respiratory: Bilaterally diminished breath sounds. No adventitious breath sounds. Cardiovascular: S1, S2 heard. No murmurs or gallops. Abdomen: Soft and nondistended. Diffuse abdominal tenderness specifically in the suprapubic area. Genitourinary: Deferred. Extremities: No cyanosis, no clubbing, no edema. Peripheral pulses palpable. Neurologic: Cranial nerves II through XII grossly intact. The patient is awake, alert, and oriented. Skin: Normal skin turgor. No skin rashes. Results Result Diagram: 03/16/17 0515 03/16/17 0515 Results 24 hrs Laboratory Tests Test 03/16/17 05:15 White Blood Count 16.6 H Red Blood Count 3.02 L Hemoglobin 10.2 L Hematocrit 29.9 L Mean Corpuscular Volume 99.0 Mean Corpuscular Hemoglobin 33.8 H Mean Corpuscular Hemoglobin Concent 34.1 Red Cell Distribution Width 15.9 H Platelet Count 142 Mean Platelet Volume 11.5 H Neutrophils % 72.5 Lymphocytes % 16.2 Monocytes % 7.5 Eosinophils % 2.2 Basophils % 0.4 Nucleated Red Blood Cells % 0.0 Neutrophils # 12.0 H Lymphocytes # 2.7 Monocytes # 1.3 H Eosinophils # 0.4 Basophils # 0.1 Nucleated Red Blood Cells # 0.0 Sodium Level 135 Potassium Level 3.8 Chloride Level 112 H Carbon Dioxide Level 22 Anion Gap 5 L Blood Urea Nitrogen 9 # Creatinine 0.58 Glucose Level 82 Calcium Level 7.7 L Phosphorus Level 2.2 L Magnesium Level 2.2 Total Bilirubin 0.6 Direct Bilirubin 0.00 Indirect Bilirubin 0.6 Aspartate Amino Transf (AST/SGOT) 43 Alanine Aminotransferase (ALT/SGPT) 31 Alkaline Phosphatase 82 Total Protein 4.8 L Albumin 2.1 L Globulin 2.70 Albumin/Globulin Ratio 0.77 Medications Medications Current Medications Acetaminophen (Tylenol Tab) 650 mg Q6H PRN PO PAIN LEVEL 1-3 OR FEVER; Start at 09:00 Ondansetron HCl 4 mg 4 mg Q6H PRN IV NAUSEA AND/OR VOMITING; Start 03/14/17 at 10:30 Piperacillin Sod/ Tazobactam Sod (Zosyn 3.375gm/ 100 ml (Pmx)) 100 ml @ 25 mls/ hr Q8 IVPB Last administered on 03/16/17t 05:30; Admin Dose 25 MLS/HR; Start at 11:00 CARLOS MONTES NP Mar 16, 2017 10:51
[2017-03-16] MEDS ORDERED: VANCOMYCIN 750 MG in SOD CHLORIDE 0.9% 150 ML IVPB SCH (13:00)
[2017-03-16 14:16] VITALS: BP 122/58; RESP 18
--- NOTE | 2017-03-16 15:34 | PN ---
Date/Time of Note Date/Time of Note DATE: 03/16/17 TIME: 15:30 Assessment/Plan VTE Prophylaxis VTE Prophylaxis Intervention: SCD's Lines/Catheters IV Catheter Type (from [facility]): Saline Lock Assessment/Plan Assessment/Plan Assessment * Abdominal pain/constipation T/C Diverticulitis * hypothyroidism * sepsis sec UTI Plan * continue present management * further orders will depend on clinical course * case discussed with Dr Bunch Subjective 24 Hr Interval Summary Free Text/Dictation * Case reviewed * Patient seen and examined * Patient previously transferred to ICU because of blood pressure issues * Denies abdominal pain Exam/Review of Systems Vital Signs Vitals Vital Signs Date Time Temp Pulse Resp B/P Pulse Ox O2 Delivery O2 Flow Rate FiO2 03/16/17 14:16 98.0 79 18 122/58 96 03/15/17 20:00 Nasal Cannula 2.0 Intake and Output 03/15/17 03/15/17 03/16/17 15:00 23:00 07:00 Intake Total 3150 ml 1050 ml 320 ml Output Total 600 ml 100 ml Balance 3150 ml 450 ml 220 ml Exam Constitutional: alert, frail Head: atraumatic, normocephalic Neck: non-tender, supple Respiratory: clear to auscultation, normal air movement Cardiovascular: nl pulses, regular rate and rhythm Gastrointestinal: non-tender, soft Musculoskeletal: nl extremities to inspection, nl gait and stance Extremities: normal pulses Skin: nl turgor, No rash or lesions Results Result Diagram: 03/16/17 0515 03/16/17 0515 Results 24 hrs Laboratory Tests Test 03/16/17 05:15 White Blood Count 16.6 H Red Blood Count 3.02 L Hemoglobin 10.2 L Hematocrit 29.9 L Mean Corpuscular Volume 99.0 Mean Corpuscular Hemoglobin 33.8 H Mean Corpuscular Hemoglobin Concent 34.1 Red Cell Distribution Width 15.9 H Platelet Count 142 Mean Platelet Volume 11.5 H Neutrophils % 72.5 Lymphocytes % 16.2 Monocytes % 7.5 Eosinophils % 2.2 Basophils % 0.4 Nucleated Red Blood Cells % 0.0 Neutrophils # 12.0 H Lymphocytes # 2.7 Monocytes # 1.3 H Eosinophils # 0.4 Basophils # 0.1 Nucleated Red Blood Cells # 0.0 Sodium Level 135 Potassium Level 3.8 Chloride Level 112 H Carbon Dioxide Level 22 Anion Gap 5 L Blood Urea Nitrogen 9 # Creatinine 0.58 Glucose Level 82 Calcium Level 7.7 L Phosphorus Level 2.2 L Magnesium Level 2.2 Total Bilirubin 0.6 Direct Bilirubin 0.00 Indirect Bilirubin 0.6 Aspartate Amino Transf (AST/SGOT) 43 Alanine Aminotransferase (ALT/SGPT) 31 Alkaline Phosphatase 82 Total Protein 4.8 L Albumin 2.1 L Globulin 2.70 Albumin/Globulin Ratio 0.77 Medications Medications Current Medications Acetaminophen (Tylenol Tab) 650 mg Q6H PRN PO PAIN LEVEL 1-3 OR FEVER; Start at 09:00 Ondansetron HCl 4 mg 4 mg Q6H PRN IV NAUSEA AND/OR VOMITING; Start 03/14/17 at 10:30 Piperacillin Sod/ Tazobactam Sod (Zosyn 3.375gm/ 100 ml (Pmx)) 100 ml @ 25 mls/ hr Q8 IVPB Last administered on 03/16/17t 14:12; Admin Dose 25 MLS/HR; Start at 11:00 BUTCH FREY NP Mar 16, 2017 15:34
[2017-03-16] MEDS: ACETAMINOPHEN 325 MG TAB PO PRN (16:15)
--- NOTE | 2017-03-16 16:31 | RADRPT ---
Vent Rate: 107 bpm RR Interval: 0 msec ND Interval: 144 msec QRS Duration: 80 msec QT Interval: 338 msec QTC Interval: 451 msec P-R-T [place]: 38 - 63 - 36 degrees Sinus tachycardia Otherwise normal ECG Electronically Signed By: Gordo Ramirez [id number]
[2017-03-16 20:00] VITALS: BP 126/60; RESP 18
--- NOTE | 2017-03-16 22:08 | CONS ---
DATE OF ADMISSION: 03/14/2017 DATE OF CONSULTATION: 03/16/2017 REASON FOR CONSULTATION: Antibiotic management. HISTORY OF PRESENT ILLNESS: Alexys Chau is a 76-year-old female with past medical history of hypothyroidism and GERD who came to the emergency room with chief complaint of diffuse abdominal pain, chronic constipation, worse over the last few days. He is being seen for antibiotic management. Patient has had abdominal pain for the past three years since she had a hysterectomy. She had been having constipation for the past year and takes Colace. She is having poor appetite and abdominal discomfort. In the emergency room, a CT scan of the abdomen and pelvis showed mild diffuse colonic wall thickening without pericolonic stranding and mild colitis. CT scan also showed diverticulosis of the sigmoid and descending colon but no definite CT evidence of diverticulitis. There is no evidence of any calcified urinary calculi or obstructive uropathy. Patient had minimal leukocytosis. She is afebrile and tachycardic. She was treated with IV Flagyl and Levaquin in the emergency room. In the emergency room, here white count was 11.6, H and H of 12.3 and 37.2, platelet count 190,000. BUN and creatinine 11/0.51. PAST MEDICAL HISTORY: As outlined. Additional medical history, she is hypothyroid. PAST SURGICAL HISTORY: Status post hysterectomy. SOCIAL HISTORY: She does not smoke, drink, or abuse drugs. ALLERGIES: NONE TO PENICILLIN, SULFA, OR FOODS. MEDICATION: Per chart. REVIEW OF SYSTEMS: Noncontributory. PHYSICAL EXAMINATION: GENERAL: Patient is a well-developed, well-nourished female who is alert and responsive in no acute distress. VITAL SIGNS: Stable. She is afebrile. SKIN: Without generalized rash. HEENT: Within normal limits. NECK: Supple. Lymph nodes nonpalpable. CHEST: Decreased breath sounds at the bases. ABDOMEN: Soft, nontender, nondistended. She has diffuse abdominal tenderness in the suprapubic area. EXTREMITIES: Without cyanosis, clubbing or edema. RECTAL: Deferred. GENITAL: Deferred. NEUROLOGICAL: No evidence of focal neurological abnormalities. DIAGNOSTIC AND LABORATORY DATA: Chest x-ray just showed mild left basilar atelectasis and aortic atherosclerosis. Patient was begun on ceftriaxone and then was started on vancomycin and Zosyn. She was seen by Dr. Hall. He noted that she had hypotension and sepsis requiring transfer to the intensive care unit and initiation of vasopressor support. Urinalysis showed gram-negative rods. Initial Clostridium difficile was negative. Her white count jumped up to 18.7, hemoglobin 10.3, platelet count 162,000. BUN and creatinine 20/0.73. Chest x-ray without infiltrates or effusions, mild basilar atelectasis. Dr. Hall felt that she had likely gram- negative septic shock and was therefore placed on vancomycin and Zosyn. Today, she was noted to have E. coli ESBL urinary tract infection with E. coli sensitive to Zosyn, as well as to cefepime. C. diff was negative. Blood cultures are negative. White count is 16.6 today. As noted, the urine was positive for nitrite and leukocyte esterase and had 57 white cells per high- power field. IMPRESSION: Patient came in with urinary tract infection with sepsis and hypotension, so septic shock, and currently on Zosyn. The vancomycin can be discontinued. I will dictate my findings to the hospitalists, as well as to Dr. Hall. Dictated By: Tex Shirley MD JD/brien/joy /Document#: [id number]
[2017-03-17 02:00] VITALS: BP 125/58; RESP 18
[2017-03-17] MEDS: PIPER-TAZO 3.375 GM IV (PMX) 100 ML IVPB SCH (05:05)
[2017-03-17 06:11] LABS: BASOPHIL # 0.1 10^3/ul (0.0-0.1); BASOPHILS % 0.6 % (0.0-2.0); EOSINOPHILS # 0.3 10^3/ul (0.0-0.5); EOSINOPHILS % 3.3 % (0.0-7.0); HEMATOCRIT 31.8 % (37.0-47.0); HEMOGLOBIN 10.8 g/dl (12.0-16.0); LYMPHOCYTES # 2.7 10^3/ul (0.8-2.9); LYMPHOCYTES % 28.7 % (15.0-51.0); MEAN CORPUSCULAR HEMOGLOBIN 33.3 pg (29.0-33.0); MEAN CORPUSCULAR VOLUME 98.1 fl (82.0-101.0); MEAN PLATELET VOLUME 11.4 fl (7.4-10.4); MONOCYTE # 0.7 10^3/ul (0.3-0.9); MONOCYTES % 7.7 % (0.0-11.0); NEUTROPHIL # 5.5 10^3/ul (1.6-7.5); NEUTROPHILS % 59.3 % (39.0-77.0); PLATELET COUNT 156 10^3/UL (140-415); RED BLOOD COUNT 3.24 10^6/ul (4.20-5.40); RED CELL DISTRIBUTION WIDTH 15.5 % (11.5-14.5); WHITE BLOOD COUNT 9.3 10^3/ul (4.8-10.8)
[2017-03-17 06:38] LABS: PHOSPHORUS 2.6 mg/dl (2.5-4.9)
[2017-03-17 06:41] LABS: CALCIUM 7.6 mg/dl (8.4-10.2); CREATININE 0.59 mg/dl (0.44-1.00); POTASSIUM 3.5 mmol/L (3.5-5.1)
[2017-03-17 08:26] VITALS: BP 129/63; RESP 16
--- NOTE | 2017-03-17 09:14 | PN ---
Date/Time of Note Date/Time of Note DATE: 03/17/17 TIME: 09:11 Assessment/Plan VTE Prophylaxis VTE Prophylaxis Intervention: SCD's Lines/Catheters IV [facility]from [facility] Saline Lock Assessment/Plan Chief Complaint/Hosp Course 1. Abdominal pain. CT scan of the abdomen and pelvis showing mild diffuse colonic wall thickening without pericolonic stranding. However, the CT showed retained feces throughout the colon consistent with constipation. Being followed by gastroenterology. 2. Severe sepsis secondary to underlying urinary tract infection. Continue antimicrobials. No evidence of any septic shock. 3. E. coli ESBL urinary tract infection. Continue contact precautions. Antibiotic management as per infectious diseases. 4. Hypothyroidism. Continue Synthroid. 5. Deconditioning. Status post evaluation by physical therapy. Physical therapy recommending discharge home with a front wheel walker and home health physical therapy. 6. Fluids, electrolytes, and nutrition. Soft diet. 7. DVT prophylaxis. Bilateral sequential compression devices. 8. Plan. Continue antimicrobials. Resume stool softeners. Await ID recommendations for antibiotics for discharge. Local anti-inflammatory agents to the lopez-rectal area. Obtain KUB. Problems: Subjective 24 Hr Interval Summary Free Text/Dictation Patient remains afebrile. WBC has been normalized. Complains of lopez-rectal pain and burning. Having bowel movements, but unable to empty the bowels completely. Exam/Review of Systems Vital Signs Vitals Vital Signs Date Time Temp Pulse Resp B/P Pulse Ox O2 Delivery O2 Flow Rate FiO2 03/17/17 08:26 98.8 65 16 129/63 95 03/15/17 20:00 Nasal Cannula 2.0 Intake and Output 03/16/17 03/16/17 03/17/17 15:00 23:00 07:00 Intake Total 100 ml 580 ml 150 ml Output Total 900 ml Balance 100 ml -320 ml 150 ml Exam General: Adequately build 76 year-old female lying in bed in no apparent distress. HEENT: Normocephalic, atraumatic. Eyes: Anicteric sclerae, conjunctivae clear. ENT: Nasal septum midline, oral mucosa moist. Neck supple, JVD noticed. Respiratory: Bilaterally diminished breath sounds. No adventitious breath sounds. Cardiovascular: S1, S2 heard. No murmurs or gallops. Abdomen: Soft and nondistended. Diffuse abdominal tenderness specifically in the suprapubic area. Genitourinary: Deferred. Extremities: No cyanosis, no clubbing, no edema. Peripheral pulses palpable. Neurologic: Cranial nerves II through XII grossly intact. The patient is awake, alert, and oriented. Skin: Normal skin turgor. No skin rashes. Results Result Diagram: 03/17/17 0531 03/17/17 0531 Results 24 hrs Laboratory Tests Test 03/17/17 05:31 White Blood Count 9.3 # Red Blood Count 3.24 L Hemoglobin 10.8 L Hematocrit 31.8 L Mean Corpuscular Volume 98.1 Mean Corpuscular Hemoglobin 33.3 H Mean Corpuscular Hemoglobin Concent 34.0 Red Cell Distribution Width 15.5 H Platelet Count 156 Mean Platelet Volume 11.4 H Neutrophils % 59.3 Lymphocytes % 28.7 Monocytes % 7.7 Eosinophils % 3.3 Basophils % 0.6 Nucleated Red Blood Cells % 0.0 Neutrophils # 5.5 Lymphocytes # 2.7 Monocytes # 0.7 Eosinophils # 0.3 Basophils # 0.1 Nucleated Red Blood Cells # 0.0 Sodium Level 139 Potassium Level 3.5 Chloride Level 111 H Carbon Dioxide Level 24 Anion Gap 8 Blood Urea Nitrogen 6 L Creatinine 0.59 Glucose Level 83 Calcium Level 7.6 L Phosphorus Level 2.6 Magnesium Level 2.0 Medications Medications Current Medications Acetaminophen (Tylenol Tab) 650 mg Q6H PRN PO PAIN LEVEL 1-3 OR FEVER Last administered on 03/16/17 16:15; Admin Dose 650 MG; Start 03/14/17 at 09:00 Ondansetron HCl 4 mg 4 mg Q6H PRN IV NAUSEA AND/OR VOMITING; Start 03/14/17 at 10:30 Piperacillin Sod/ Tazobactam Sod (Zosyn 3.375gm/ 100 ml (Pmx)) 100 ml @ 25 mls/ hr Q8 IVPB Last administered on 03/17/17 05:05; Admin Dose 25 MLS/HR; Start at 11:00 CARLOS MONTES NP Mar 17, 2017 09:14
[2017-03-17] MEDS: LEVOTHYROXINE 100 MCG TAB PO SCH (09:40)
[2017-03-17] MEDS ORDERED: HYDROCORTISONE 25 MG SUPP PR PRN (10:00)
[2017-03-17] MEDS: POLYETHYLENE GLYCOL 17 GM PACKET PO SCH ×2 (11:25→20:56)
--- NOTE | 2017-03-17 12:13 | PN ---
Date/Time of Note Date/Time of Note DATE: 03/17/17 TIME: 12:13 Assessment/Plan VTE Prophylaxis VTE Prophylaxis Intervention: SCD's Lines/Catheters IV Catheter Type (from Rust): Saline Lock Assessment/Plan Chief Complaint/Hosp Course [facility] HCIS Progress Note Adult Patient Name: Alexys Chau Unit Number: [id number] Date of : 1940 Patient Status: Admitted Inpatient Attending Doctor: Betty Crespo MD Date/Time of Note Date/Time of Note Date/Time of Note DATE: 03/16/17 TIME: 15:30 Assessment/Plan Assessment/Plan VTE Prophylaxis VTE Prophylaxis Intervention: SCD's Lines/Catheters IV Catheter Type (from Rust): Saline Lock Assessment/Plan Assessment/Plan Assessment * Abdominal pain/constipation T/C Diverticulitis * hypothyroidism * sepsis sec UTI Plan * continue present management Subjective Subjective 24 Hr Interval Summary Free Text/Dictation * Patient seen and examined * Denies abdominal pain * Woman hematemesis reported Exam Constitutional: alert, frail Head: atraumatic, normocephalic Neck: non-tender, supple Respiratory: clear to auscultation, normal air movement Cardiovascular: nl pulses, regular rate and rhythm Gastrointestinal: non-tender, soft Musculoskeletal: nl extremities to inspection, nl gait and stance Extremities: normal pulses Skin: nl turgor, No rash or lesions Problems: Exam/Review of Systems Vital Signs Vitals Vital Signs Date Time Temp Pulse Resp B/P Pulse Ox O2 Delivery O2 Flow Rate FiO2 03/17/17 08:26 98.8 65 16 129/63 95 03/15/17 20:00 Nasal Cannula 2.0 Intake and Output 03/16/17 03/16/17 03/17/17 15:00 23:00 07:00 Intake Total 100 ml 580 ml 150 ml Output Total 900 ml Balance 100 ml -320 ml 150 ml Results Result Diagram: 03/17/1731 03/17/17 0531 Results 24 hrs Laboratory Tests Test 03/17/17 05:31 White Blood Count 9.3 # Red Blood Count 3.24 L Hemoglobin 10.8 L Hematocrit 31.8 L Mean Corpuscular Volume 98.1 Mean Corpuscular Hemoglobin 33.3 H Mean Corpuscular Hemoglobin Concent 34.0 Red Cell Distribution Width 15.5 H Platelet Count 156 Mean Platelet Volume 11.4 H Neutrophils % 59.3 Lymphocytes % 28.7 Monocytes % 7.7 Eosinophils % 3.3 Basophils % 0.6 Nucleated Red Blood Cells % 0.0 Neutrophils # 5.5 Lymphocytes # 2.7 Monocytes # 0.7 Eosinophils # 0.3 Basophils # 0.1 Nucleated Red Blood Cells # 0.0 Sodium Level 139 Potassium Level 3.5 Chloride Level 111 H Carbon Dioxide Level 24 Anion Gap 8 Blood Urea Nitrogen 6 L Creatinine 0.59 Glucose Level 83 Calcium Level 7.6 L Phosphorus Level 2.6 Magnesium Level 2.0 Medications Medications Current Medications Acetaminophen (Tylenol Tab) 650 mg Q6H PRN PO PAIN LEVEL 1-3 OR FEVER Last administered on 03/16/17 16:15; Admin Dose 650 MG; Start 03/14/17 at 09:00 Ondansetron HCl 4 mg 4 mg Q6H PRN IV NAUSEA AND/OR VOMITING; Start 03/14/17 at 10:30 Piperacillin Sod/ Tazobactam Sod (Zosyn 3.375gm/ 100 ml (Pmx)) 100 ml @ 25 mls/ hr Q8 IVPB Last administered on 03/17/17 05:05; Admin Dose 25 MLS/HR; Start at 11:00 Polyethylene Glycol (Miralax) 17 gm BID PO Last administered on 03/17/17 11:25 ; Admin Dose 17 GM; Start 03/17/17 at 10:00 Hydrocortisone (Anusol-Hc Supp) 25 mg BID PRN [place] HEMORROID PAIN/ITCHING Last administered on 03/17/17 11:25; Admin Dose 25 MG; Start 03/17/17 at 10:00 NIKKO DUFF MD Mar 17, 2017 12:13
[2017-03-17 14:00] VITALS: BP 130/71; RESP 16
--- NOTE | 2017-03-17 14:09 | CONS ---
Date/Time of Note Date/Time of Note DATE: 03/17/17 TIME: 14:09 Assessment/Plan Assessment/Plan Chief Complaint/Hosp Course Alert, feels good denies pain, no fevers Temperature 98.8 pulse 65 respirations 16 blood pressure 129/63 saturation 95 on room air WBC 9.3 H&H 10.8 and 31.8 platelets 156 BUN 6 creatinine 0.59 Antimicrobials: Zosyn Physical examination: Well-developed well-nourished elderly woman who is alert in no distress. Head atraumatic normocephalic sclerae anicteric neck is supple chest rise symmetrical breath sounds clear. Heart: S1-S2. Abdomen soft bowel sounds present extremities without cyanosis Assessment: 1. Systemic inflammatory response syndrome with resolving leukocytosis 2. E. coli ESBL UTI 3. Sigmoid diverticulosis 4. Status post septic shock Plan: We are going to change Zosyn to Invanz, repeat urine cultures as patient is complaining of frequent urination follow gastroenterology recommendations Problems: Consultation Date/Type/Reason Admit Date/Time Mar 14, 2017 at 07:58 Initial Consult Date Type of Consultation: ID Exam/Review of Systems Vital Signs Vitals Vital Signs Date Time Temp Pulse Resp B/P Pulse Ox O2 Delivery O2 Flow Rate FiO2 03/17/17 08:26 98.8 65 16 129/63 95 03/15/17 20:00 Nasal Cannula 2.0 Intake and Output 03/16/17 03/16/17 03/17/17 15:00 23:00 07:00 Intake Total 100 ml 580 ml 150 ml Output Total 900 ml Balance 100 ml -320 ml 150 ml Results Result Diagram: 03/17/17 0531 03/17/17 0531 Results 24 hrs Laboratory Tests Test 03/17/17 05:31 White Blood Count 9.3 # Red Blood Count 3.24 L Hemoglobin 10.8 L Hematocrit 31.8 L Mean Corpuscular Volume 98.1 Mean Corpuscular Hemoglobin 33.3 H Mean Corpuscular Hemoglobin Concent 34.0 Red Cell Distribution Width 15.5 H Platelet Count 156 Mean Platelet Volume 11.4 H Neutrophils % 59.3 Lymphocytes % 28.7 Monocytes % 7.7 Eosinophils % 3.3 Basophils % 0.6 Nucleated Red Blood Cells % 0.0 Neutrophils # 5.5 Lymphocytes # 2.7 Monocytes # 0.7 Eosinophils # 0.3 Basophils # 0.1 Nucleated Red Blood Cells # 0.0 Sodium Level 139 Potassium Level 3.5 Chloride Level 111 H Carbon Dioxide Level 24 Anion Gap 8 Blood Urea Nitrogen 6 L Creatinine 0.59 Glucose Level 83 Calcium Level 7.6 L Phosphorus Level 2.6 Magnesium Level 2.0 Medications Medications Current Medications Acetaminophen (Tylenol Tab) 650 mg Q6H PRN PO PAIN LEVEL 1-3 OR FEVER Last administered on 03/16/17 16:15; Admin Dose 650 MG; Start 03/14/17 at 09:00 Ondansetron HCl 4 mg 4 mg Q6H PRN IV NAUSEA AND/OR VOMITING; Start 03/14/17 at 10:30 Piperacillin Sod/ Tazobactam Sod (Zosyn 3.375gm/ 100 ml (Pmx)) 100 ml @ 25 mls/ hr Q8 IVPB Last administered on 03/17/17 05:05; Admin Dose 25 MLS/HR; Start at 11:00 Polyethylene Glycol (Miralax) 17 gm BID PO Last administered on 03/17/17 11:25 ; Admin Dose 17 GM; Start 03/17/17 at 10:00 Hydrocortisone (Anusol-Hc Supp) 25 mg BID PRN [place] HEMORROID PAIN/ITCHING Last administered on 03/17/17 11:25; Admin Dose 25 MG; Start 03/17/17 at 10:00 JOSE ARMANDO EDWARDS NP Mar 17, 2017 14:09
--- NOTE | 2017-03-17 15:24 | RADRPT ---
PROCEDURE: XR Abdomen 1 View. CLINICAL INDICATION: Abdominal pain. TECHNIQUE: AP abdomen x-ray. COMPARISON: None. FINDINGS: Scattered gas is seen in the transverse colon. Scattered gas is seen within nondilated loops of smal l bowel in the right abdomen. No dilated loops of small bowel are observed. No organomegaly is iden tified. No abnormal calculi are observed. The osseous structures are intact. IMPRESSION: Nonspecific bowel gas pattern. If further characterization of the abdomen is needed CT should be considered. RPTAT: AA .Ming Waite MD, Date Time Electronically viewed and signed by .Ming Waite MD, on 03/17/2017 15:24 .P/
[2017-03-17] MEDS: ERTAPENEM SODIUM 1 GM in SOD CHLORIDE 0.9% 100 ML IVPB SCH (16:41)
[2017-03-17] MEDS: ACETAMINOPHEN 325 MG TAB PO PRN (19:01)
[2017-03-17 19:41] VITALS: BP 126/67; RESP 18
[2017-03-18 02:42] VITALS: BP 124/60; RESP 18
[2017-03-18 06:20] LABS: BASOPHIL # 0.1 10^3/ul (0.0-0.1); BASOPHILS % 0.9 % (0.0-2.0); EOSINOPHILS # 0.4 10^3/ul (0.0-0.5); EOSINOPHILS % 6.4 % (0.0-7.0); HEMATOCRIT 31.8 % (37.0-47.0); HEMOGLOBIN 10.6 g/dl (12.0-16.0); LYMPHOCYTES # 2.8 10^3/ul (0.8-2.9); LYMPHOCYTES % 48.8 % (15.0-51.0); MEAN CORPUSCULAR HEMOGLOBIN 32.4 pg (29.0-33.0); MEAN CORPUSCULAR HGB CONC 33.3 g/dl (32.0-37.0); MEAN CORPUSCULAR VOLUME 97.2 fl (82.0-101.0); MEAN PLATELET VOLUME 11.5 fl (7.4-10.4); MONOCYTE # 0.7 10^3/ul (0.3-0.9); MONOCYTES % 11.7 % (0.0-11.0); NEUTROPHIL # 1.8 10^3/ul (1.6-7.5); NEUTROPHILS % 31.7 % (39.0-77.0); PLATELET COUNT 173 10^3/UL (140-415); RED BLOOD COUNT 3.27 10^6/ul (4.20-5.40); RED CELL DISTRIBUTION WIDTH 15.4 % (11.5-14.5); WHITE BLOOD COUNT 5.7 10^3/ul (4.8-10.8)
[2017-03-18 06:47] LABS: CREATININE 0.56 mg/dl (0.44-1.00); POTASSIUM 3.6 mmol/L (3.5-5.1)
[2017-03-18 07:05] LABS: MAGNESIUM 1.9 mg/dl (1.7-2.5); PHOSPHORUS 2.9 mg/dl (2.5-4.9)
[2017-03-18 07:52] VITALS: BP 130/60; RESP 18
[2017-03-18] MEDS: LEVOTHYROXINE 100 MCG TAB PO SCH (08:29)
[2017-03-18] MEDS: POLYETHYLENE GLYCOL 17 GM PACKET PO SCH (08:30)
--- NOTE | 2017-03-18 11:22 | PDOCDIS ---
Discharge Instructions DIAGNOSIS Discharge Diagnosis UTI w/ E.coli ESBL. CONDITION Patient Condition: Stable HOME CARE INSTRUCTIONS: Diet Instructions: Regular FOLLOW UP/APPOINTMENTS Follow-up Plan Chris Nolasco MD Specialty: Internal Medicine Office Address: [place] [address] Office OTHER ORDERS: Other Orders: 1. Take medications as per prescription. Complete the course of antibiotics. 2. Take a regular diet. 3. Activities as tolerated. 4. Follow-up with your primary care physician in 1 week. If you do not have a primary care physician, please call Dr. Chris Nolasco's office. 1. [place] los medicamentos segn la receta. Completar el curso de los antibi ticos. 2. [place] gabriela dieta regular. 3. Actividades thania toleradas. 4. Seguimiento con tian mdico de atencin primaria en gabriela semana. Si no tiene un mdico de atencin primaria, llame a la oficina del Dr. Chris Nolasco. CARLOS MONTES NP Mar 18, 2017 11:22
[2017-03-18] MEDS ORDERED: DOCU-144 PO (11:23)
[2017-03-18] MEDS ORDERED: SULF1TAB31 PO (11:23)
--- NOTE | 2017-03-18 11:45 | DS ---
Date/Time of Note Date/Time of Note DATE: 03/18/17 TIME: 11:42 Discharge Summary Admission/Discharge Info Admit Date/Time Mar 14, 2017 at 07:58 Discharge Date/Time Discharge Diagnosis 1. S/P sepsis secondary to underlying urinary tract infection. 2. E. coli ESBL urinary tract infection. 3. Hypothyroidism. 4. Constipation. 5. Deconditioning. Patient Condition: Stable Consults 1. Tomy Bunch MD, Gastroenterology. 2. Tex Shirley MD, Infectious Diseases. Procedures CT Abdomen and Pelvis IMPRESSION: 1. Mild diffuse colonic wall thickening without pericolonic stranding and mild colitis should be considered. Diverticulosis of the sigmoid and distal descending colon but no definite CT evidence of diverticulitis. Negative for intra-abdominal free air fluid or abscesses. 2. No evidence of calcified urinary calculi or obstructive uropathy. 3. Bilateral fat containing inguinal hernias but no herniated hour strangulation. 2D Echocardiogram Conclusions 1. Normal left ventricular systolic function. Normal left ventricular cavity size. Normal left ventricular wall thickness. Ejection fraction is visually estimated at 60 %. Tissue Doppler/Mitral Doppler indices are consistent with impaired relaxation (Stage I diastolic dysfunction). 2. Normal appearance and function of the mitral valve with trace physiologic regurgitation. 3. Normal appearance of the tricuspid valve. Estimated peak PA systolic pressure 33 mmHg. There is mild tricuspid regurgitation. Hx of Present Illness Reason for admission: Abdominal pain, constipation. Consultants 1. Tomy Bunch MD. Gastroenterology. 76-year-old female with past medical history of hypothyroidism and GERD who came to the ER with chief complaint of diffuse abdominal pain and chronic constipation that has been worse for the past 2 days. Patient verbalized that she was having abdominal pain for the past 3 years since she had her hysterectomy done. She also verbalized that she has been having constipation for the past 1 year or so. She was taking as needed Colace for her constipation. The patient verbalized that her last BM was 2 days ago. Patient denied any fevers or chills. The patient verbalized that she was having poor appetite and had abdominal discomfort with food intake. In the emergency room, the patient underwent a CT scan of the abdomen and pelvis that showed "mild diffuse colonic wall thickening without pericolonic stranding and mild colitis should be considered." The CT also revealed diverticulosis of the sigmoid and distal descending colon but no definite CT evidence of diverticulitis. There was no evidence of any calcified urinary calculi or obstructive uropathy. The patient had minimal leukocytosis. The patient was afebrile. The patient was noticed to be tachycardic. The patient was treated with IV Flagyl and IV Levaquin in the emergency room. Hospital Course The patient was admitted to inpatient setting. Gastroenterology consult was obtained. The patient was started on a bowel regimen. The patient's constipation was relieved with the bowel regimen. The patient had multiple episodes of loose stools on 03/14/2017. The patient became hypotensive after multiple episodes of diarrhea. The patient also had worsening leukocytosis in the morning of 03/15/2017. The patient remained persistently hypotensive despite multiple boluses of IV normal saline. Therefore, the patient was transferred to intensive care unit for possible vasopressor therapy. The patient had positive urinalysis upon admission to the ER. Hence, the patient was started on empiric antibiotics. The patient had evidence of sepsis with early underlying septic shock on 03/15/2017. Hence the patient's antibiotics were optimized. Fortunately, the patient was not started on any IV pressors and the patient's hypotension resolved. The patient's urine culture showed E. coli ESBL. Consequently, infectious diseases consult was obtained. The patient's antibiotics were adjusted as per infectious diseases recommendations. The patient continued to have some abdominal pain. The patient was resumed on her stool softeners with improvement in the patient's abdominal pain. However, the patient's abdominal pain that was present upon admission was resolved towards the end of the patient 's hospital course. The patient's abdominal pain upon presentation could have been as a result of significant constipation as well as underlying cystitis. The patient was being followed by gastroenterology during the patient's hospital course. The patient has underlying hypothyroidism. The patient was maintained on Synthroid for the same. She was also noted to be deconditioned. The patient was evaluated by physical therapy. Physical therapy recommended a front wheel walker versus a single point cane along with home health for home physical therapy upon discharge. Case management order was put in for home health for home physical therapy and home safety evaluation. However, the patient has no health insurance and this was unable to be arranged. Discharge Instructions 1. Take medications as per prescription. Complete the course of antibiotics. 2. Take a regular diet. 3. Activities as tolerated. 4. Follow-up with your primary care physician in 1 week. If you do not have a primary care physician, please call Dr. Chris Nolasco's office. The patient verbalized understanding of the discharge instructions. At this time I would like to thank all the consultants for seeing the patient and providing clinical recommendations. Case discussed with Dr. Lopez. Home Meds Active Scripts Docusate Sodium* (Colace*) 100 Mg Capsule, 100 MG PO BID, #60 CAP Prov:CARLOS MONTES VIDEO SURVEILLANCE TECHNICIAN 03/18/17 Sulfamethoxazole/Trimethoprim* (Bactrim Ds* Tablet) 1 Each Tablet, 1 TAB PO BID , #10 TAB Prov:CARLOS MONTES VIDEO SURVEILLANCE TECHNICIAN 03/18/17 Reported Medications Levothyroxine Sodium* (Synthroid*) 100 Mcg Tablet, 100 MCG PO AC BREAKFAST, TAB 05/08/15 Omeprazole* (Omeprazole*) 20 Mg Capsule.dr, 20 MG PO DAILY, CAP 02/16/14 Discontinued Reported Medications Acyclovir* (Acyclovir*) 400 Mg Tablet, 400 MG PO BID, TAB 03/14/17 Acetaminophen (Mapap) 500 Mg Capsule, 500 MG PO Q4H Y for PAIN, CAP 03/14/17 Docusate Sodium* (Doc-Q-Lace*) 100 Mg Capsule, 100 MG PO BID Y for CONSTIPATION , CAP 03/14/17 Discontinued Scripts Ibuprofen* (Motrin*) 400 Mg Tab, 400 MG PO Q6, #30 TAB Prov:ADRIANA MILLER C 11/04/15 Clotrimazole* (Clotrimazole* AF) 1% - 30 Gm Cream.gm., 1 APPLIC TOP BID for 7 Days, TUB Prov:PAULANAADRIANA C 11/04/15 Phenazopyridine Hcl* (Pyridium*) 100 Mg Tab, 100 MG PO TID Y for URINARY PAIN, # 8 TAB Prov:PAULADRIANA C 11/04/15 Nitrofurantoin Monohyd Macrocr* (Macrobid*) 100 Mg Capsr, 100 MG PO BID for 7 Days, CAP Prov:PAULADRIANA C 11/04/15 Ciprofloxacin Hcl* (Ciprofloxacin Hcl*) 500 Mg Tablet, 500 MG PO BID for 5 Days , TAB Prov:CAMRYN POWER DO 05/09/15 Follow-up Plan Chris Nolasco MD Specialty: Internal Medicine Office Address: [address] [facility] [address] [place], [place] [id number] Office Primary Care Provider Channing Sloan MD Time spent on discharge: > 30 minutes Pending Labs Name: CORINE KU Age/Sex: 76/F Attend Dr: MAREK HOUSTON MD Acct: [id number] MR# : [id number] : 1940 Location: [facility] 620-A Admit: 03/14/17 Specimen: [id number] Status: Complete John: 03/14/17 Rcvd: 03/14 Source: [facility] Sp Descrip: Procedure Result Microbiology URINE CULTURE Final Organism 1 ESCHERICHIA COLI (ESBL) COLONY COUNT >100,000 CFU/ml . MULTI DRUG RESISTANT ORGANISM Phoned to [facility], 1007,03/16/17.TT GLORIA ESBL M.I.C. RX --------- --- AMPICILLIN >=32 R CEFAZOLIN R CEFEPIME 2 S CEFOTAXIME R CIPROFLOXACIN >=4 R GENTAMICIN <=1 S IMIPENEM <=0.25 S LEVOFLOXACIN >=8 R NITROFURANTOIN 64 I TOBRAMYCIN <=1 S TRIMETHOPRIM/SULFAMETHOXAZOLE <=20 S PIPERACILLIN/TAZOBACTAM <=4 S ................................................................................ ............ Flags: Critical Hi = *H Critical Lo = *L Microbiology Abnormal = * Abnormal Hi = H Abnormal Lo = L Blood Bank Abnormal = * Susceptability Flags: S = Sensitive R = Resistant I = Intermediate END OF REPORT Laboratory Tests Test 03/17/17 13:49 03/18/17 05:17 Stool Occult Blood NEGATIVE (NEGATIVE) White Blood Count 5.710^3/ul (4.8-10.8) Red Blood Count 3.2710^6/ul (4.20-5.40) Hemoglobin 10.6g/dl (12.0-16.0) Hematocrit 31.8% (37.0-47.0) Mean Corpuscular Volume 97.2fl (82.0-101.0) Mean Corpuscular Hemoglobin 32.4pg (29.0-33.0) Mean Corpuscular Hemoglobin Concent 33.3g/dl (32.0-37.0) Red Cell Distribution Width 15.4% (11.5-14.5) Platelet Count 85544^3/UL (140-415) Mean Platelet Volume 11.5fl (7.4-10.4) Neutrophils % 31.7% (39.0-77.0) Lymphocytes % 48.8% (15.0-51.0) Monocytes % 11.7% (0.0-11.0) Eosinophils % 6.4% (0.0-7.0) Basophils % 0.9% (0.0-2.0) Nucleated Red Blood Cells % 0.0/100WBC (0.0-0.0) Neutrophils # 1.810^3/ul (1.6-7.5) Lymphocytes # 2.810^3/ul (0.8-2.9) Monocytes # 0.710^3/ul (0.3-0.9) Eosinophils # 0.410^3/ul (0.0-0.5) Basophils # 0.110^3/ul (0.0-0.1) Nucleated Red Blood Cells # 0.010^3/ul (0.0-0.0) Sodium Level 137mmol/L (135-144) Potassium Level 3.6mmol/L (3.5-5.1) Chloride Level 108mmol/L (97-110) Carbon Dioxide Level 27mmol/L (21-31) Anion Gap 6 (8-16) Blood Urea Nitrogen 5mg/dl (7-20) Creatinine 0.56mg/dl (0.44-1.00) Glucose Level 76mg/dl (70-220) Calcium Level 8.0mg/dl (8.4-10.2) Phosphorus Level 2.9mg/dl (2.5-4.9) Magnesium Level 1.9mg/dl (1.7-2.5) Microbiology Date/Time Source Procedure Growth Status 03/17/17 16:30 Clean Catch Urine Urine Culture - Preliminary NO GROWTH AFTER 24 HOURS Resulted CARLOS MONTES NP Mar 18, 2017 11:45
[2017-03-18 14:07] VITALS: BP 151/72; RESP 18
--- NOTE | 2017-03-18 14:16 | PN ---
Date/Time of Note Date/Time of Note DATE: 03/18/17 TIME: 14:15 Assessment/Plan VTE Prophylaxis VTE Prophylaxis Intervention: SCD's Lines/Catheters IV [facility] Saline Lock Urinary Cath still in place: No Assessment/Plan Chief Complaint/Hosp Course Assessment * Abdominal pain/constipation T/C Diverticulitis * hypothyroidism * sepsis sec UTI Plan * Outpatient follow-up for possible colonoscopy in 6 weeks * Subjective Subjective 24 Hr Interval Summary Free Text/Dictation * Patient seen and examined * Denies abdominal pain * Agree with outpatient management Exam Constitutional: alert, frail Head: atraumatic, normocephalic Neck: non-tender, supple Respiratory: clear to auscultation, normal air movement Cardiovascular: nl pulses, regular rate and rhythm Gastrointestinal: non-tender, soft Musculoskeletal: nl extremities to inspection, nl gait and stance Extremities: normal pulses Skin: nl turgor, No rash or lesions Problems: Exam/Review of Systems Vital Signs Vitals Vital Signs Date Time Temp Pulse Resp B/P Pulse Ox O2 Delivery O2 Flow Rate FiO2 03/18/17 14:07 98.1 77 18 151/72 98 03/15/17 20:00 Nasal Cannula 2.0 Intake and Output 03/17/17 03/17/17 03/18/17 15:00 23:00 07:00 Intake Total 570 ml 1180 ml Output Total 800 ml Balance 570 ml 380 ml Results Result Diagram: 03/18/1717 03/18/17 0517 Results 24 hrs Laboratory Tests Test 03/18/17 05:17 White Blood Count 5.7 # Red Blood Count 3.27 L Hemoglobin 10.6 L Hematocrit 31.8 L Mean Corpuscular Volume 97.2 Mean Corpuscular Hemoglobin 32.4 Mean Corpuscular Hemoglobin Concent 33.3 Red Cell Distribution Width 15.4 H Platelet Count 173 Mean Platelet Volume 11.5 H Neutrophils % 31.7 L Lymphocytes % 48.8 Monocytes % 11.7 H Eosinophils % 6.4 Basophils % 0.9 Nucleated Red Blood Cells % 0.0 Neutrophils # 1.8 Lymphocytes # 2.8 Monocytes # 0.7 Eosinophils # 0.4 Basophils # 0.1 Nucleated Red Blood Cells # 0.0 Sodium Level 137 Potassium Level 3.6 Chloride Level 108 Carbon Dioxide Level 27 Anion Gap 6 L Blood Urea Nitrogen 5 L Creatinine 0.56 Glucose Level 76 Calcium Level 8.0 L Phosphorus Level 2.9 Magnesium Level 1.9 Medications Medications Current Medications Acetaminophen (Tylenol Tab) 650 mg Q6H PRN PO PAIN LEVEL 1-3 OR FEVER Last administered on 03/17/17 19:01; Admin Dose 650 MG; Start 03/14/17 at 09:00 Ondansetron HCl (Zofran Inj) 4 mg Q6H PRN IV NAUSEA AND/OR VOMITING; Start at 10:30 Polyethylene Glycol (Miralax) 17 gm BID PO Last administered on 03/17/17 20:56 ; Admin Dose 17 GM; Start 03/17/17 at 10:00 Hydrocortisone 25 mg 25 mg BID PRN [place] HEMORROID PAIN/ITCHING Last administered on 03/17/17 11:25; Admin Dose 25 MG; Start 03/17/17 at 10:00 Ertapenem/Sodium Chloride (Invanz/NS) 100 ml @ 200 mls/hr Q24H IVPB Last administered on 03/17/17 16:41; Admin Dose 200 MLS/HR; Start 03/17/17 at 16:00 NIKKO DUFF MD Mar 18, 2017 14:16
--- NOTE | 2017-03-18 15:19 | CONS ---
Date/Time of Note Date/Time of Note DATE: 03/18/17 TIME: 15:15 Assessment/Plan Assessment/Plan Chief Complaint/Hosp Course Assessment/Plan Chief Complaint/Hosp Course Alert. Awake. No Fevers. Antimicrobials: Zosyn Physical examination: Well-developed well-nourished elderly woman who is alert in no distress. Head atraumatic normocephalic sclerae anicteric neck is supple chest rise symmetrical breath sounds clear. Heart: S1-S2. Abdomen soft bowel sounds present extremities without cyanosis Assessment: 1. Systemic inflammatory response syndrome with resolving leukocytosis 2. E. coli ESBL UTI 3. Sigmoid diverticulosis 4. Status post septic shock Plan: Follow gastroenterology recommendations. Per Infectious Disease Team may be discharged on P.O. Bactrim x 5 days. Once cleared by the Primary Doctor. Problems: Consultation Date/Type/Reason Admit Date/Time Mar 14, 2017 at 07:58 Initial Consult Date Type of Consultation: ID Exam/Review of Systems Vital Signs Vitals Vital Signs Date Time Temp Pulse Resp B/P Pulse Ox O2 Delivery O2 Flow Rate FiO2 03/18/17 14:07 98.1 77 18 151/72 98 03/15/17 20:00 Nasal Cannula 2.0 Intake and Output 03/17/17 03/17/17 03/18/17 15:00 23:00 07:00 Intake Total 570 ml 1180 ml Output Total 800 ml Balance 570 ml 380 ml Results Result Diagram: 03/18/17 0517 03/18/17 0517 Results 24 hrs Laboratory Tests Test 03/18/17 05:17 White Blood Count 5.7 # Red Blood Count 3.27 L Hemoglobin 10.6 L Hematocrit 31.8 L Mean Corpuscular Volume 97.2 Mean Corpuscular Hemoglobin 32.4 Mean Corpuscular Hemoglobin Concent 33.3 Red Cell Distribution Width 15.4 H Platelet Count 173 Mean Platelet Volume 11.5 H Neutrophils % 31.7 L Lymphocytes % 48.8 Monocytes % 11.7 H Eosinophils % 6.4 Basophils % 0.9 Nucleated Red Blood Cells % 0.0 Neutrophils # 1.8 Lymphocytes # 2.8 Monocytes # 0.7 Eosinophils # 0.4 Basophils # 0.1 Nucleated Red Blood Cells # 0.0 Sodium Level 137 Potassium Level 3.6 Chloride Level 108 Carbon Dioxide Level 27 Anion Gap 6 L Blood Urea Nitrogen 5 L Creatinine 0.56 Glucose Level 76 Calcium Level 8.0 L Phosphorus Level 2.9 Magnesium Level 1.9 Medications Medications Current Medications Acetaminophen (Tylenol Tab) 650 mg Q6H PRN PO PAIN LEVEL 1-3 OR FEVER Last administered on 03/17/17 19:01; Admin Dose 650 MG; Start 03/14/17 at 09:00 Ondansetron HCl (Zofran Inj) 4 mg Q6H PRN IV NAUSEA AND/OR VOMITING; Start at 10:30 Polyethylene Glycol (Miralax) 17 gm BID PO Last administered on 03/17/17 20:56 ; Admin Dose 17 GM; Start 03/17/17 at 10:00 Hydrocortisone 25 mg 25 mg BID PRN [place] HEMORROID PAIN/ITCHING Last administered on 03/17/17 11:25; Admin Dose 25 MG; Start 03/17/17 at 10:00 Ertapenem/Sodium Chloride (Invanz/NS) 100 ml @ 200 mls/hr Q24H IVPB Last administered on 03/17/17 16:41; Admin Dose 200 MLS/HR; Start 03/17/17 at 16:00 DOREEN POLLARD NP Mar 18, 2017 15:19
[2017-03-18] MEDS: ERTAPENEM SODIUM 1 GM in SOD CHLORIDE 0.9% 100 ML IVPB SCH (16:00)
== END 2017-03-18 17:00 | disposition home health service (06) | DRG 871 ==
LOC: E/R 04:43 → MS3 07:58 → MS2 14:52 → PP2 18:09 → ICU 03-15 07:32 → MS2 03-15 13:45
PROVIDERS: ADMIT Internal Medicine; ATTEND Internal Medicine
DX: A41.50 Gram-negative sepsis, unspecified (principal); R65.21 Severe sepsis with septic shock; N39.0 Urinary tract infection, site not specified; E03.9 Hypothyroidism, unspecified; K59.09 Other constipation; B96.20 Unspecified Escherichia coli [E. coli] as the cause of diseases classified elsewhere; Z16.12 Extended spectrum beta lactamase (ESBL) resistance; K57.30 Diverticulosis of large intestine without perforation or abscess without bleeding
CPT/HCPCS: 36415; 71010; 74000; 74176; 80048; 80053; 81001; 82270; 83036; 83605; 83690; 83735; 83880; 84100; 84439; 84443; 85025; 85610; 85730; 87040; 87045; 87075; 87086; 87177; 93005; 93306; 96365; 96367; 96375; 97162; J0696; J1335; J1885; J1956; J2270; J2405; J2543; J2765; J3370; J7030; J7050